=== PATIENT | female | born 2000 | race Caucasian/White ===

== ENCOUNTER 2020-09-19 01:22 | Emergency (ER) | payer MEDICAID ==
[~2020-09-19] VITALS: Ht 167.6 cm; Wt 74.4 kg
[2020-09-19 01:25] VITALS: BP 147/81
--- NOTE | 2020-09-19 01:26 | NUR ---
PATIENT 20 Y/O FEMALE BIB SELF FOR C/O INTERMITTENT RLQ PAIN X 7 HOURS. PATIENT STATES PAIN IS SHARP AND PROVOKED BY COUGH. PATIENT STATES TENDER TO PALPATION PATIENT. PATIENT AFEBRILE. PATIENT DENIES N/V/D. PATIENT DENIES URINARY BURNING, PATIENT DENIES VAGINAL BLEEDING, OR DISCHARGE. SEE COMPLETE ASSESSMENT FOR FUTHER DETAILS. MEDHX: ANEMIA ALLERGIES: NKA
--- NOTE | 2020-09-19 01:26 | NUR ---
PATIENT W/C TO BED 11.
--- NOTE | 2020-09-19 01:29 | NUR ---
ABIGAIL LONDONO AT BEDSIDE FOR MEDICAL EVALUATION.
--- NOTE | 2020-09-19 01:40 | NUR ---
LAB AT BEDSIDE.
[2020-09-19 01:56] LABS: BASOPHILS # (AUTO) 0.1 K/uL (0.00-0.22); BASOPHILS % (AUTO) 0.8 % (0.0-2.0); EOSINOPHILS # (AUTO) 0.2 K/uL (0-0.4); EOSINOPHILS % (AUTO) 1.1 % (0.0-4.0); HEMATOCRIT 37.2 % (36-48); HEMOGLOBIN 12.1 g/dL (12.0-16.0); LYMPHOCYTES # (AUTO) 6.4 K/uL (2.5-16.5); MEAN CORPUSCULAR HEMOGLOBIN 25 pg (27-31); MEAN CORPUSCULAR HGB CONC 33 g/dL (33-37); MEAN CORPUSCULAR VOLUME 77.8 fL (80-94); MONOCYTES # (AUTO) 1.2 K/uL (0.8-1.0); MONOCYTES % (AUTO) 7.4 % (1.7-9.3); NEUTROPHILS # (AUTO) 8.1 K/uL (1.8-7.7); NEUTROPHILS % (AUTO) 50.7 % (42.2-75.2); PLATELET COUNT (AUTO) 483 K/uL (140-450); RED BLOOD CELL COUNT(AUTO) 4.79 MIL/uL (4.20-5.40); RED CELL DISTRIBUTION WIDTH 17.1 % (11.6-13.7); WHITE BLOOD COUNT (AUTO) 16.1 K/uL (4.5-11.0)
[2020-09-19 02:05] LABS: ALBUMIN 4.4 g/dL (3.4-5.0); ANION GAP 12.2 (8-16); CARBON DIOXIDE 28.5 mmol/L (21-32); CREATININE 0.7 mg/dL (0.6-1.3); POTASSIUM 3.7 mmol/L (3.5-5.1); TOTAL BILIRUBIN 0.7 mg/dL (0.0-1.0)
[2020-09-19] MEDS: ACETAMINOPHEN EXTRA STRENGTH 500 MG TAB PO ONE (02:05)
--- NOTE | 2020-09-19 02:19 | NUR ---
PATIENT TAKEN TO CT VIA W/C.
[2020-09-19 02:24] LABS: APPEARANCE,URINE SL CLOUDY (CLEAR); BILIRUBIN,URINE NEGATIVE (NEGATIVE); BLOOD, URINE NEGATIVE (NEGATIVE); COLOR,URINE YELLOW (YELLOW); LEUKOCYTE ESTERASE ,URINE NEGATIVE (NEGATIVE); NITRITE, URINE NEGATIVE (NEGATIVE); PH,URINE 8.5 (5.0-9.0); UGLUCOSE NEGATIVE (NEGATIVE)
--- NOTE | 2020-09-19 04:06 | NUR ---
Patient appears to be resting comfortably in bed. Vital Signs within normal limits. Respirations even and unlabored. Patient states, "My pain is so much better."
[2020-09-19 04:21] VITALS: BP 128/72
--- NOTE | 2020-09-19 04:21 | NUR ---
Patient discharged with v/s stable. Written and verbal after care instructions given and explained. Patient verbalized understanding. Ambulatory with steady gait. All questions addressed prior to discharge. Advised to follow up with PMD.
== END 2020-09-19 04:21 | disposition home or self-care (01) ==
LOC: MED 01:22
DX: R10.31 Right lower quadrant pain (principal)
CPT/HCPCS: 36415; 80053; 81003; 84703; 85025; 99284

== ENCOUNTER 2022-04-17 15:23 | Emergency (ER) | payer BC, MEDICAID, OTHER ==
[~2022-04-17] VITALS: Ht 167.6 cm; Wt 79.5 kg
[2022-04-17 15:32] VITALS: BP 120/66
--- NOTE | 2022-04-17 15:44 | NUR ---
ELICEO. HANDED ON URINE CUP.
[2022-04-17 16:21] LABS: BASOPHILS # (AUTO) 0.1 K/uL (0.00-0.22); BASOPHILS % (AUTO) 0.8 % (0.0-2.0); EOSINOPHILS # (AUTO) 0.1 K/uL (0-0.4); HEMATOCRIT 38.8 % (36-48); HEMOGLOBIN 12.5 g/dL (12.0-16.0); LYMPHOCYTES # (AUTO) 3.6 K/uL (2.5-16.5); LYMPHOCYTES % (AUTO) 25.5 % (20.5-51.1); MEAN CORPUSCULAR HEMOGLOBIN 25 pg (27-31); MEAN CORPUSCULAR HGB CONC 32 g/dL (33-37); MEAN CORPUSCULAR VOLUME 76.7 fL (80-94); MONOCYTES # (AUTO) 0.9 K/uL (0.8-1.0); MONOCYTES % (AUTO) 6.3 % (1.7-9.3); NEUTROPHILS # (AUTO) 9.4 K/uL (1.8-7.7); NEUTROPHILS % (AUTO) 66.4 % (42.2-75.2); PLATELET COUNT (AUTO) 507 K/uL (140-450); RED BLOOD CELL COUNT(AUTO) 5.06 MIL/uL (4.20-5.40); RED CELL DISTRIBUTION WIDTH 17.8 % (11.6-13.7); WHITE BLOOD COUNT (AUTO) 14.2 K/uL (4.8-10.8)
--- NOTE | 2022-04-17 16:23 | NUR ---
COVID, FLU SWABS DONE.
[2022-04-17 17:08] LABS: ANION GAP 10.8 (8-16); CARBON DIOXIDE 29.4 mmol/L (21-32); CREATININE 0.7 mg/dL (0.6-1.3); POTASSIUM 4.2 mmol/L (3.5-5.1)
[2022-04-17] MEDS ORDERED: MECL-303 PO (17:54)
[2022-04-17 18:06] VITALS: BP 124/79
--- NOTE | 2022-04-17 18:07 | NUR ---
Patient discharged with v/s stable. Written and verbal after care instructions given and explained. Patient alert, oriented and verbalized understanding of instructions. Ambulatory with steady gait. All questions addressed prior to discharge. ID band removed. Patient advised to follow up with PMD. Rx of ANTIVERT given. Patient educated on indication of medication including possible reaction and side effects. Opportunity to ask questions provided and answered.
== END 2022-04-17 16:04 | disposition home or self-care (01) ==
LOC: MED 15:23
DX: R42 Dizziness and giddiness (principal); Z20.822 Contact with and (suspected) exposure to COVID-19; R53.83 Other fatigue; F41.9 Anxiety disorder, unspecified; D64.9 Anemia, unspecified; Z79.899 Other long term (current) drug therapy
CPT/HCPCS: 36415; 71045; 80048; 81025; 85025; 87426; 87804; 99285; Q0092